=== PATIENT | male | born 1955 | race Caucasian/White ===

== ENCOUNTER 2023-02-20 12:55 | Emergency (ER) | payer MEDICARE, SELFPAY ==
[2023-02-20 13:20] VITALS: BP 140/69; PULSE 65; RESP 18; TEMP 36.4; O2SAT 96; BMI 30.7
--- NOTE | 2023-02-20 13:46 | DI.RAD.S_ITS ---
PROCEDURE: XR CHEST 2V INDICATIONS: cough x 3 months TECHNIQUE: 2 views of the chest were acquired. COMPARISON: None. FINDINGS: Surgical changes and devices: None. Lungs and pleura: Hazy lateral right middle lobe airspace opacity. Mediastinum: Mediastinal contours are normal. Heart size is normal. Bones and chest wall: No suspicious bony abnormalities. Soft tissues appear unremarkable. IMPRESSION: Hazy lateral right middle lobe airspace opacity, could represent atelectasis, less likely infection or mass. Dictated by: Jd Barros M.D. on 02/20/2023 at 14:02 Approved by: Jd Barros M.D. on 02/20/2023 at 14:03
--- NOTE | 2023-02-20 13:51 | ED_ITS ---
HPI - URI/Sore Throat <Taylor Salas PA-C - Last Filed: 02/20/23 14:37> General Chief Complaint: Upper Respiratory Symptoms Stated Complaint: SOB/just sick Time Seen by Provider: 02/20/23 13:08 Source: patient Mode of arrival: Ambulatory History of Present Illness HPI Narrative: 67-year-old male current smoker presents with concern for possible pneumonia or upper respiratory infection. Patient states he is had a cough for ?3 months?. He has not seen anyone for this, recently he and his for on a cruise and she developed upper respiratory symptoms in the past week, he himself states his symptoms have been pretty consistent for the past 3 months although yesterday and today he started having some coughing that was productive with some yellowish phlegm. Originally his symptoms started with sinus congestion although he says that these symptoms resolved. He states his cough is dry, he did try using a home nebulizer treatment yesterday with limited relief. He has not had chest pain shortness of breath fevers, chills or any other symptoms. Related Data Previous Rx's Medication Instructions Recorded azithromycin 250 mg tablet See Rx Instructions PO .COMPLEX 5 02/20/23 days #6 tabs benzonatate 100 mg capsule 100 mg PO TID PRN cough #30 caps 02/20/23 cefpodoxime 200 mg tablet 200 mg PO Q12H CAP 10 days #20 tabs 02/20/23 Allergies Allergy/AdvReac Type Severity Reaction Status Date / Time No Known Drug Allergies Allergy Verified 02/20/23 13:20 Review of Systems <Taylor Salas PA-C - Last Filed: 02/20/23 14:37> Review of Systems Narrative: See HPI Patient History <Taylor Salas PA-C - Last Filed: 02/20/23 14:37> Social History Smoking Status: Current every day smoker Smoking Status: Current every day smoker alcohol intake frequency: 3 or more drinks per day Alcohol type: beer Substance Use Type: marijuana Exam <Taylor Salas PA-C - Last Filed: 02/20/23 14:37> Narrative Exam Narrative: GENERAL: [67] year old patient appears stated age. Well-developed patient, in mild distress. HEAD: Atraumatic. Normocephalic. EYES: Pupils equal round and reactive. Extraocular motions intact. No scleral icterus. mld bilateral injection without drainage. ENT: Nose without bleeding, purulent drainage. Airway patent. NECK: Trachea midline. Non tender CARDIOVASCULAR: Regular rate and rhythm without murmurs, gallops, or rubs. RESPIRATORY: Bilateral wheezing all [place]. Breath sounds equal bilaterally. No rales, or rhonchi. GASTROINTESTINAL: Abdomen nondistended. EXTREMITIES: No edema or joint tenderness. BACK: Nontender without deformity or crepitance. No flank tenderness. NEURO: AOx3. SKIN: No rash or erythema of visible areas Initial Vital Signs Initial Vital Signs: Vital Signs Temperature 97.6 F 02/20/23 13:20 Pulse Rate 65 02/20/23 13:20 Respiratory Rate 18 02/20/23 13:20 Blood Pressure 140/69 02/20/23 13:20 Pulse Oximetry 96 02/20/23 13:20 Oxygen Delivery Method Room Air 02/20/23 13:20 <Abhay Miranda DO - Last Filed: 02/20/23 14:51> Initial Vital Signs Initial Vital Signs: Vital Signs Temperature 97.6 F 02/20/23 13:20 Pulse Rate 65 02/20/23 13:20 Respiratory Rate 18 02/20/23 13:20 Blood Pressure 140/69 02/20/23 13:20 Pulse Oximetry 96 02/20/23 13:20 Oxygen Delivery Method Room Air 02/20/23 13:20 Course <Taylor Salas PA-C - Last Filed: 02/20/23 14:37> Orders Ordered: ED Orders 02/20/23 13:19 COVID19 -Nasal RAPID Stat 02/20/23 13:46 CXR [XR chest 2V] Stat Discontinued Medications Albuterol (Albuterol Hfa Prepack) 1 box MISC SEEINSTR ONE Stop: 02/20/23 13:57 Last Admin: 02/20/23 14:13 Dose: 1 box Documented By: DEX Vital Signs Vital signs: Vital Signs - 8 hr 02/20/23 13:20 02/20/23 14:25 02/20/23 14:46 Temperature 97.6 F Pulse Rate 65 66 Respiratory Rate 18 20 20 Blood Pressure 140/69 137/66 Pulse Oximetry 96 95 95 Oxygen Delivery Method Room Air Room Air Room Air Oxygen Flow Rate 0 Fraction of Inspired Oxygen 21 <Abhay Miranda DO - Last Filed: 02/20/23 14:51> Orders Ordered: ED Orders 02/20/23 13:19 COVID19 -Nasal RAPID Stat 02/20/23 13:46 CXR [XR chest 2V] Stat Discontinued Medications Albuterol (Albuterol Hfa Prepack) 1 box MISC SEEINSTR ONE Stop: 02/20/23 13:57 Last Admin: 02/20/23 14:13 Dose: 1 box Documented By: DEX Vital Signs Vital signs: Vital Signs - 8 hr 02/20/23 13:20 02/20/23 14:25 02/20/23 14:46 Temperature 97.6 F Pulse Rate 65 66 Respiratory Rate 18 20 20 Blood Pressure 140/69 137/66 Pulse Oximetry 96 95 95 Oxygen Delivery Method Room Air Room Air Room Air Oxygen Flow Rate 0 Fraction of Inspired Oxygen 21 MDM - URI/Sore Throat <Taylor Salas PA-C - Last Filed: 02/20/23 14:37> Differential Diagnosis Differential diagnosis: Likely upper respiratory infection, viral infection and other Medical Records Attestation: I reviewed the patient's medical records. Lab Data Attestation: I reviewed the patient's lab results. Labs: Lab Results 02/20/23 Range/Units 13:19 SARS-CoV-2 (PCR) Positive H (Negative) Imaging Data Chest x-ray: Radiologist's Impression: [address] [address] XRay Report Signed Patient: Rolando Rey MR#: [id number] : 1955 Acct:[id number] Age/Sex: 67 / M Date of Service: 02/20/23 Loc: ED Accession Number: [id number] ?? Procedure: XR chest 2V Ordering Provider: Taylor Salas P.A-C PROCEDURE:? XR CHEST 2V ? INDICATIONS:? cough x 3 months ? TECHNIQUE:? 2 views of the chest were acquired.? ? COMPARISON:? None. ? FINDINGS:? ? Surgical changes and devices:? None.? ? Lungs and pleura:? Hazy lateral right middle lobe airspace opacity. ? Mediastinum:? Mediastinal contours are normal.? Heart size is normal.? ? Bones and chest wall:? No suspicious bony abnormalities.? Soft tissues appear unremarkable.? ? IMPRESSION:? Hazy lateral right middle lobe airspace opacity, could represent atelectasis, less likely infection or mass. ? ? Dictated by: Jd Barros M.D. on 02/20/2023 at 14:02 ? ? Approved by: Jd Barros M.D. on 02/20/2023 at 14:03?? MDM Narrative Medical decision making narrative: This is a well-appearing 67-year-old male who is a current smoker who presents with concern for 3 months of cough. Notably also just returned from a 7 day cruise today and has had upper respiratory symptoms for the past week. Patient has unremarkable vitals today is generally well-appearing he has some mild scleral injection and does have bilateral wheezing although this may be consistent with his smoking history. Patient is nontoxic appearing with unremarkable vitals. Low suspicion for sepsis or other severe acute intrathoracic process. Chest x-ray two view was obtained for further evaluation given his persistent cough symptoms. Viral testing is also obtained. He comes back positive for COVID today. Chest x-ray does show a hazy right middle lobe airspace opacity, given patient's persistent cough symptoms for 3 months I feel that this is unlikely related to his recent viral illness and I feel it is appropriate to place him on antibiotics. Prescription for cefpodoxime and b enzonatate, azithromycin for CAP/atypical pneumomia. Also advised to follow up closely with his PCP for recheck. Return precautions provided, follow-up plan discussed, all questions answered. <Abhay Miranda, DO - Last Filed: 02/20/23 14:51> Lab Data Labs: Lab Results 02/20/23 Range/Units 13:19 SARS-CoV-2 (PCR) Positive H (Negative) Discharge Plan Departure Patient Disposition: Home Clinical Impression: Atypical pneumonia, COVID-19 Instructions: COVID-19 Activity Restrictions/Additional Instructions: *You have been diagnosed with [COVID-19,atypical pneumonia] *What to do: *Please continue to take your regular medications as directed. [3 ] New medication prescriptions sent to your pharmacy: [2 antibiotics for pneumonia, and cough medicine ] [ ] New medication written as a paper prescription [ ] No new medications given *Please follow up with your primary care provider in 2-3 days, call for an appointment. Let them know you were seen in the Emergency Department and that we ask that you be seen in follow up. We will electronically transmit a record of today's note if your PCP is in our system. Please take your antibiotic medication as prescribed for the full course even if you are feeling better. You can also use the inhaler given to you today in the emergency department. I recommend he follow up closely with her primary care provider, given you have a history of smoking in her current smoker have had a persistent cough for 3 months I recommend you see your PCP for further evaluation recheck and possible additional imaging based on their recommendations. *If you do not have a primary care provider please contact the [facility] Resource line at [phone]. They will ask some questions about your medical history and help get you set up with a doctor in the community. *Return to Emergency Department if you should have any new, worsening or concerning symptoms, such as [fever greater than 101 F, shaking chills, worsening pain, persistent vomiting or other bothersome symptoms] Prescriptions: New cefpodoxime 200 mg tablet 200 mg PO Q12H 10 Days Qty: 20 0RF Rx Instructions: must administer with a meal/food azithromycin 250 mg tablet See Rx Instructions .ROUTE .COMPLEX 5 Days Qty: 6 0RF Rx Instructions: For 250 mg dose pack: take 500 mg today (day 1), then 250 mg for 4 days (days 2-5) benzonatate 100 mg capsule 100 mg PO TID PRN (Reason: cough) Qty: 30 1RF Referrals: Miscellaneous,Doctor, MD [Primary Care Provider] - Stand Alone Forms: Patient Portal/API <Abhay Miranda, DO - Last Filed: 02/20/23 14:51> [facility] Dr Miranda Co-Sign Statement: I was available for consultation during this patient's emergency department visit. This chart is signed by myself for administrative purposes only. I did not have direct contact with this patient during this visit. They were seen independently by the APC.
[2023-02-20 13:54] LABS: COVID19 -Nasal RAPID POSITIVE (Negative)
[2023-02-20] MEDS: ALBUTEROL HFA PREPACK 1 BOX MISC (14:13)
[2023-02-20 14:25] VITALS: RESP 20; O2SAT 95
[2023-02-20 14:46] VITALS: BP 137/66; PULSE 66; RESP 20; O2SAT 95
== END 2023-02-20 14:47 | disposition home or self-care (01) ==
PROVIDERS: Emergency Provider Student in an Organized Health Care Education/Training Program
DX: U07.1 COVID-19 (principal); J18.9 Pneumonia, unspecified organism
CPT/HCPCS: 71046; 87635; 94640; 99283; C9803